=== PATIENT | male | born 1970 | race Two or more races ===

== ENCOUNTER 2016-09-08 20:06 | Emergency (ER) | payer SELFPAY ==
[2016-09-08 20:17] VITALS: BP 113/76; PULSE 70; TEMP 98.7; O2SAT 99
[2016-09-08] MEDS ORDERED: Oxycodone/Acetaminophen 5/325 mg Tab PO STA (20:54)
--- NOTE | 2016-09-08 20:56 | C.PDOC ---
History Of Present Illness 46 yo male come in for evaluation of Right upper toothache gradually worsen for past 2days. Pt admits, intermittent pain to affected tooth for past few yesterday. Since this AM, noted gradually developed swelling over right cheek. Otherwise, pt denies fever, chills, drooling, trismus, SOB, dyspnea, recent dental procedure. AMbulate to ED for evaluation, appears in pain. Time Seen by Provider: 09/08/16 20:40 Chief Complaint (Nursing): Dental Pain History Per: Patient History/Exam Limitations: no limitations Onset/Duration Of Symptoms: Days Past Medical History Reviewed: Historical Data, Nursing Documentation, Vital Signs Vital Signs: Last Vital Signs Temp 98.7 F 09/08/16 20:13 Pulse 70 09/08/16 20:13 Resp 20 09/08/16 21:20 BP 113/76 09/08/16 20:13 Pulse Ox 99 09/08/16 21:06 - Medical History PMH: HTN Family History: States: No Known Family Hx - Social History Hx Alcohol Use: Yes Hx Substance Use: No - Immunization History Hx Tetanus Toxoid Vaccination: Yes Hx Influenza Vaccination: Yes Hx Pneumococcal Vaccination: No Review Of Systems Except As Marked, All Systems Reviewed And Found Negative. Constitutional: Negative for: Fever, Chills Cardiovascular: Negative for: Chest Pain Respiratory: Negative for: Shortness of Breath Gastrointestinal: Negative for: Nausea, Vomiting, Diarrhea Skin: Negative for: Rash Physical Exam - Physical Exam Appears: Well, Non-toxic, No Acute Distress Skin: Normal Color, Warm, No Rash Eye(s): bilateral: PERRL Nose: No Discharge Oral Mucosa: Moist, No Drooling, No Trismus Tongue: Normal Appearing Lips: Normal Appearing Teeth: Caries (Right upper 3rd molar) Gingiva: Swelling, Tender, Abscess (early Right 3rd upper molar, (-) flactulance.) Throat: No Erythema, No Exudate, No Drooling Neck: No Midline Cervical Tenderness, No Paracervical Tenderness, No Step Off Deformity, Supple Respiratory: No Decreased Breath Sounds, No Accessory Muscle Use, No Stridor, No Wheezing Neurological/Psych: Oriented x3, Normal Speech ED Course And Treatment O2 Sat by Pulse Oximetry: 99 (RA) Pulse Ox Interpretation: Normal Progress Note: On re-evaluation, pt afebrile, hemodynamicaly stable, not in any apparent distress. Tolerate Po well in ED. PulseOx 100% RA. NEck: (-) meningeal sign. ENT: exam c/w Right upper 3rd molar early abscess, mild facial edema without erythema. No flactulance. Uvula midline, no edema. Lungs: CTA B/L , BS equal B/L. Neuroloigcaly intact. ABx, analgesics given. Pt advised on course of ds. ref. to f/u with Dentist in 2-3 days for re-eavl. return if any new changes. Disposition Counseled Patient/Family Regarding: Diagnosis, Need For Followup, Rx Given - Disposition Referrals: [facility] [Provider Group] [facility] [Provider Group] Disposition: HOME/ ROUTINE Disposition Time: 20:58 Condition: STABLE Prescriptions: Clindamycin [Cleocin] 300 mg PO Q6 #28 cap traMADol [Ultram] 50 mg PO TID #7 tab Instructions: Dental Abscess (ED) Print Language: BENGALI - Clinical Impression Clinical Impression: Dental abscess
[2016-09-08] MEDS ORDERED: Oxycodone/Acetaminophen 5/325 mg Tab ONE (21:02)
[2016-09-08 21:23] VITALS: RESP 20
== END 2016-09-08 21:20 | disposition home or self-care (01) ==
LOC: C.ER 20:06
DX: K04.7 Periapical abscess without sinus (principal)